=== PATIENT | male | born 2005 | race Caucasian/White ===

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

== ENCOUNTER → 2024-04-18 | Outpatient (CLI) | payer OTHER ==
[2024-04-21 15:49] LABS: APTIMA MEDIA TYPE Urine; C. TRACHOMATIS BY TMA Positive (Negative); N. GONORRHOEAE BY TMA Negative (Negative); SPECIMEN SOURCE Urine
== END ==
LOC: LAB SHORT 14:18 → LAB 14:18
PROVIDERS: Physician Assistant Medical
DX: R36.9 Urethral discharge, unspecified (principal)
CPT/HCPCS: 87491; 87591

== ENCOUNTER 2024-05-18 14:34 | Emergency (ER) | payer OTHER ==
[~2024-05-18] VITALS: Ht 180.3 cm; Wt 68.0 kg
[2024-05-18 14:59] VITALS: BP 146/104
== END 2024-05-18 16:11 | disposition home or self-care (01) ==
LOC: ER 14:34
DX: S86.911A Strain of unspecified muscle(s) and tendon(s) at lower leg level, right leg, initial encounter (principal); S83.91XA Sprain of unspecified site of right knee, initial encounter; W17.89XA Other fall from one level to another, initial encounter; Z91.018 Allergy to other foods
CPT/HCPCS: 73562-RT; 99283-25